=== PATIENT | female | born 1980 | race Two or more races ===

== ENCOUNTER 2025-03-14 11:32 | Emergency (ER) | payer MEDICAID ==
[~2025-03-14] VITALS: Ht 182.9 cm; Wt 73.0 kg
[2025-03-14 11:43] VITALS: O2SAT 100
[2025-03-14] MEDS ORDERED: NIRM1TAB8 MT (13:48)
[2025-03-14] MEDS ORDERED: LIDO-53 TP (13:48)
[2025-03-14] MEDS ORDERED: IBUP-2028 MT (13:48)
[2025-03-14] MEDS: KETOROLAC 30MG/ML VIAL IM ONE (14:02)
[2025-03-14 14:03] VITALS: BP 123/78; PULSE 92; RESP 18; TEMP 37.1; O2SAT 97
== END 2025-03-14 14:08 | disposition home or self-care (01) ==
LOC: ER 11:32
DX: U07.1 COVID-19 (principal); J45.909 Unspecified asthma, uncomplicated; Z79.899 Other long term (current) drug therapy
CPT/HCPCS: 96372; 99283; 87426; J1885; Z7610